=== PATIENT | male | born 1980 | race Caucasian/White ===

== ENCOUNTER 2025-04-13 11:44 | Outpatient (CLI) | payer OTHER, SELFPAY ==
--- NOTE | ~2025-04-13 | MR_ITS ---
EXAMINATION: MR pituitary wo/w con DATE: 04/13/2025 12:40 INDICATION: Hypogonadism. TECHNIQUE: Magnetic resonance imaging (MRI) of the brain and brainstem was performed without and with 20 mL Multihance intravenous contrast. Whole-brain sequences included sagittal T1-weighted FSE, axial diffusion-weighted FS EPI, axial T2*-weighted GRE, axial T2-weighted FLAIR Propeller, and axial T2-weighted Propeller. Small [id number] sequences included sagittal and coronal T1- weighted FSE centered at the pituitary. Postcontrast sequences included small [id number] coronal T1-weighted FSE in a time course and sagittal T1-weighted FSE and whole-brain axial T1-weighted FSE. Apparent diffusion coefficient (ADC) maps were created. COMPARISON: None. FINDINGS: There are no areas of restricted diffusion to suggest acute infarction. There is a 4 mm lesion, likely a pituitary adenoma in the left side of the pituitary gland which is hypointense to the surrounding pituitary on precontrast T1- weighted imaging which remains hypointense nonenhancing throughout the early to mid portion of the dynamic postcontrast sequencing. The lesion equilibrates with the surrounding pituitary on the final post contrast images. Pituitary stalk remains midline and there is no evident bulging of the cephalad margin of the pituitary. No intracranial hemorrhage or other abnormal intracranial mass lesion. There are no intraparenchymal signal abnormalities seen on the other pulse sequences. The ventricles are symmetric and normal in size. There are no abnormal extra-axial fluid collections. Flow voids are seen in the cerebral arteries on the T2-weighted sequences consistent with their expected patency. Mild mucosal thickening the bilateral ethmoid sinuses. Visualized orbits and so ft tissues are unremarkable. There are no other areas of abnormal enhancement on the post contrast images. IMPRESSION: 1. 4 mm lesion in the left pituitary which is hypoenhancing relative to the surrounding pituitary throughout the majority of the dynamic postcontrast images, axial brain and the final images consistent with a pituitary microadenoma. Reviewed, dictated and finalized at location A. R TECH IMPRESSION: 1. 4 mm lesion in the left pituitary which is hypoenhancing relative to the jhon rounding pituitary throughout the majority of the dynamic postcontrast images, axial brain and the final images consistent with a pituitary microadenoma.
== END 2025-04-13 11:45 | disposition home or self-care (01) ==
LOC: MICIMG 11:46
PROVIDERS: PCP Nurse Practitioner; Visit Provider Internal Medicine
DX: R79.89 Other specified abnormal findings of blood chemistry (principal)
CPT/HCPCS: 70553; A9577